=== PATIENT | female | born 1995 | race Hispanic/Latino ===

== ENCOUNTER 2016-09-10 12:18 | Outpatient (CLI) | payer BC | END 2016-09-10 12:19 | LOC: MADLABBHPM 12:18 | PROVIDERS: ATTEND Family Medicine | DX: Z01.419 Encounter for gynecological examination (general) (routine) without abnormal findings (principal) | CPT/HCPCS: 36415; 87480; 87491; 87510; 87591; 87660 ==

== ENCOUNTER 2017-04-07 09:08 | Outpatient (CLI) | payer OTHER ==
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
== END 2017-04-07 09:09 | disposition home or self-care (01) ==
LOC: MADRAD 09:08
PROVIDERS: ATTEND Family Medicine
DX: M54.5 Low back pain (principal)
CPT/HCPCS: 72100

== ENCOUNTER 2019-01-18 08:58 | Outpatient (CLI) | payer OTHER ==
--- NOTE | 2019-01-18 10:54 | ULT ---
PELVIS TRANSABDOMINAL AND ENDOVAGINAL IMAGING: HISTORY: Left adnexal pain, x 1 year. COMPARISON: None. TECHNIQUE: Transabdominal and endovaginal imaging of the pelvis is performed. The ovaries are interrogated with treadwell-scale, color-flow, Doppler imaging and spectral wave-form analysis. FINDINGS: The uterus is identified without myometrial masses. The uterus measures 4.8 x 6.0 x 2.8 cm. There i s a small amount of fluid in the lower uterine segment. At the level of the fundus, echotexture is homogeneous with a diameter of 0.45 cm. The right ovary has a normal echotexture, measuring 1.1 x 0. 9 x 1.6 cm. The left ovary has a normal echotexture, measuring 1.4 x 1.6 x 1.5 cm. No free fluid. Ovarian Doppler: Vascular flow to the left and right ovary. IMPRESSION: Small amount of nonspecific fluid in the lower uterine segment. Otherwise, unremarkable exam. Transcribed Date/Time: 01/18/2019 11:08 AM
== END 2019-01-18 08:59 | disposition home or self-care (01) ==
LOC: MADULT 08:58
PROVIDERS: ATTEND Family Medicine
DX: R10.9 Unspecified abdominal pain (principal)
CPT/HCPCS: 76856